=== PATIENT | female | born 1940 | race Asian ===

== ENCOUNTER 2025-05-14 03:26 | Emergency (ER) | payer MEDICARE, MEDICAID ==
[~2025-05-14] VITALS: Ht 147.3 cm; Wt 38.6 kg
[2025-05-14 03:28] VITALS: TEMP 97.9
[2025-05-14] MEDS ORDERED: ATOR40TA28 PO (03:32)
[2025-05-14 04:04] LABS: PLATELET COUNT (AUTO) 314 K/uL (150-450); RED BLOOD CELL COUNT(AUTO) 4.97 MIL/uL (4.00-5.20); RED CELL DISTRIBUTION WIDTH 16.3 % (11.5-14.5); WHITE BLOOD COUNT (AUTO) 8.7 K/uL (4.5-11.0)
[2025-05-14 04:08] LABS: CALCIUM, TOTAL 9.6 mg/dL (8.8-10.5); CREATININE 1.06 mg/dL (0.60-1.30); GLOMERULAR FILTR. RATE CALC 49 mL/min (>60); GLUCOSE,RANDOM 185 mg/dL (70-110); SODIUM SERUM 133 mmol/L (136-145); UREA NITROGEN, BLOOD 14 mg/dL (7-18)
[2025-05-14 04:16] LABS: TROPONIN I-HIGH SENSITIVITY 24 ng/L (<51)
[2025-05-14 05:03] LABS: APPEARANCE,URINE HAZY (CLEAR); GLUCOSE, URINE (UA) NEGATIVE (NEGATIVE); LEUKOCYTE ESTERASE ,URINE LARGE (NEGATIVE); NITRATE,URINE NEGATIVE (NEGATIVE); OCCULT BLOOD,URINE NEGATIVE (NEGATIVE); SPECIFIC GRAVITIY, URINE 1.019 (1.003-1.030)
[2025-05-14 05:20] LABS: SULFOSALICYLIC ACID,URINE 2+ (Negative)
[2025-05-14 05:21] LABS: AMORPHOUS SEDIMENT,UR Moderate /LPF (None Seen); SQUAMOUS EPITHELIAL CELL,UR Few /LPF (None Seen)
[2025-05-14] MEDS ORDERED: CEFU250T87 PO (05:28)
[2025-05-14 05:30] VITALS: BP 135/74; PULSE 92; RESP 15; O2SAT 99
[2025-05-16] MEDS ORDERED: LOSA-381 PO (08:22)
[2025-05-17] MEDS ORDERED: METR500 PO (14:40)
[2025-05-17] MEDS ORDERED: LOSA-382 PO (14:40)
[2025-05-17] MEDS ORDERED: LEVO-72 PO (14:40)
== END 2025-05-14 05:55 | disposition home or self-care (01) ==
LOC: EMS 03:26
DX: N39.0 Urinary tract infection, site not specified (principal); I10 Essential (primary) hypertension; E78.00 Pure hypercholesterolemia, unspecified; Z79.899 Other long term (current) drug therapy
CPT/HCPCS: 80048; 81001; 81002; 83690; 84484; 85025; 87086; 93005; 99284